=== PATIENT | female | born 1970 | race Caucasian/White ===

== ENCOUNTER 2022-08-03 21:13 | Emergency (ER) | payer MEDICAID ==
[~2022-08-03] VITALS: Ht 157.5 cm; Wt 81.6 kg
[2022-08-03 21:15] VITALS: BP 166/100
--- NOTE | 2022-08-03 21:26 | NUR ---
TO BR FOR UA FOLLOWING TRIAGE, THEN TO LOBBY
[2022-08-03 22:23] LABS: APPEARANCE,URINE CLEAR (CLEAR); BILIRUBIN,URINE NEGATIVE (NEGATIVE); BLOOD, URINE NEGATIVE (NEGATIVE); COLOR,URINE YELLOW (YELLOW); LEUKOCYTE ESTERASE ,URINE 1+ (NEGATIVE); NITRITE, URINE NEGATIVE (NEGATIVE); UGLUCOSE NEGATIVE (NEGATIVE)
[2022-08-03 22:29] LABS: RBC,URINE 0-5 /HPF (0-5); WBC,URINE 0-5 /HPF (0-5)
--- NOTE | 2022-08-03 22:54 | NUR ---
20G IV ESTABLISHED TO LT AC. BLOOD DRAWN VIA IV START.
[2022-08-03 22:58] LABS: BASOPHILS % (AUTO) 0.5 % (0.0-2.0); EOSINOPHILS # (AUTO) 0.1 K/uL (0-0.4); EOSINOPHILS % (AUTO) 1.3 % (0.0-4.0); HEMATOCRIT 39.1 % (36-48); HEMOGLOBIN 13.4 g/dL (12.0-16.0); LYMPHOCYTES # (AUTO) 2.5 K/uL (2.5-16.5); LYMPHOCYTES % (AUTO) 31.7 % (20.5-51.1); MEAN CORPUSCULAR HEMOGLOBIN 30 pg (27-31); MEAN CORPUSCULAR HGB CONC 34 g/dL (33-37); MEAN CORPUSCULAR VOLUME 87.1 fL (80-94); MONOCYTES # (AUTO) 0.4 K/uL (0.8-1.0); MONOCYTES % (AUTO) 5.3 % (1.7-9.3); NEUTROPHILS # (AUTO) 4.8 K/uL (1.8-7.7); NEUTROPHILS % (AUTO) 61.2 % (42.2-75.2); PLATELET COUNT (AUTO) 272 K/uL (140-450); RED BLOOD CELL COUNT(AUTO) 4.49 MIL/uL (4.20-5.40); RED CELL DISTRIBUTION WIDTH 12.8 % (11.6-13.7); WHITE BLOOD COUNT (AUTO) 7.9 K/uL (4.8-10.8)
[2022-08-03 23:27] LABS: ALBUMIN 4.3 g/dL (3.4-5.0); ANION GAP 13.7 (8-16); CREATININE 0.7 mg/dL (0.6-1.3); POTASSIUM 3.7 mmol/L (3.5-5.1); TOTAL BILIRUBIN 0.3 mg/dL (0.0-1.0)
[2022-08-04] MEDS ORDERED: ONDANSETRON 4 MG/2 ML VIAL IVP ONE (00:05)
[2022-08-04] MEDS ORDERED: KETOROLAC 15 MG/ML VIAL IVP ONE (00:05)
--- NOTE | 2022-08-04 00:07 | NUR ---
PT TO CT VIA W/C
--- NOTE | 2022-08-04 00:30 | NUR ---
PT TO BED #12
[2022-08-04] MEDS ORDERED: MORPHINE SULFATE 4 MG/ML SYR IVP ONE (01:00)
[2022-08-04] MEDS ORDERED: NACL 0.9% 1,000 ML IV ONE (01:00)
[2022-08-04] MEDS ORDERED: BEN10 PO (02:00)
[2022-08-04] MEDS ORDERED: CEPH-588 PO (02:00)
--- NOTE | 2022-08-04 02:36 | NUR ---
Patient discharged with v/s stable. Written and verbal after care instructions given and explained. Patient alert, oriented and verbalized understanding of instructions. Ambulatory with steady gait. All questions addressed prior to discharge. ID band removed. Patient advised to follow up with PMD. Rx of keflex and bentyl given. Patient educated on indication of medication including possible reaction and side effects. Opportunity to ask questions provided and answered.
[2022-08-05] MEDS ORDERED: ACET-5629 PO (17:03)
== END 2022-08-04 02:36 | disposition home or self-care (01) ==
LOC: MED 21:13
DX: N39.0 Urinary tract infection, site not specified (principal)
CPT/HCPCS: 36415; 74177; 80053; 81001; 81025; 83690; 85025; 87086; 96361; 96374; 96375; 99285; J1885; J2270; J2405; Q9967; J7030

== ENCOUNTER 2022-08-05 11:10 | Emergency (ER) | payer MEDICAID ==
[~2022-08-05] VITALS: Ht 157.5 cm; Wt 75.3 kg
[~2022-08-05 11:10] MED LIST: BEN10 PO; CEPH-588 PO
[2022-08-05 11:22] VITALS: BP 140/106
[2022-08-05] MEDS ORDERED: MORPHINE SULFATE 4 MG/ML SYR IM ONE (13:55)
[2022-08-05] MEDS ORDERED: MORPHINE SULFATE 4 MG/ML SYR ONE (13:58)
--- NOTE | 2022-08-05 14:07 | NUR ---
PT TAKEN TO XRAY VIA WHEELCHAIR
--- NOTE | 2022-08-05 14:24 | NUR ---
PT AMB TO BED 10
--- NOTE | 2022-08-05 14:25 | NUR ---
52YO FEMALE PT C/O BURNING 9/10 ABDOMINAL PAIN AND N/V-BLOOD X3DAYS. PT W/ HX OF HERNIA MESH REPAIR AND STATES S/S. REPORTS CONSTIPATION X2DAYS. ABDOMEN NON TENDER OR DISTENED, HYPOACTIVE X4. PT RECENTLY SEEN IN ER FOR S/S AND D/C W PAIN MANAGEMENT. DENIES RELIEF SINCE AND UNABLE TO SEE PCP SOON. DENIES CHEST PAIN, SOB, FEVER OR CHILLS. PT AAOX4, HOB POSITIONED PER COMFORT, HX: ULCERS NKA
[2022-08-05 14:51] VITALS: BP 127/94
[2022-08-05 14:56] LABS: BASOPHILS % (AUTO) 0.2 % (0.0-2.0); EOSINOPHILS % (AUTO) 0.4 % (0.0-4.0); HEMATOCRIT 42.6 % (36-48); HEMOGLOBIN 14.7 g/dL (12.0-16.0); LYMPHOCYTES # (AUTO) 1.9 K/uL (2.5-16.5); LYMPHOCYTES % (AUTO) 21.9 % (20.5-51.1); MEAN CORPUSCULAR HEMOGLOBIN 30 pg (27-31); MEAN CORPUSCULAR HGB CONC 35 g/dL (33-37); MEAN CORPUSCULAR VOLUME 87.7 fL (80-94); MONOCYTES # (AUTO) 0.4 K/uL (0.8-1.0); MONOCYTES % (AUTO) 4.2 % (1.7-9.3); NEUTROPHILS # (AUTO) 6.5 K/uL (1.8-7.7); NEUTROPHILS % (AUTO) 73.3 % (42.2-75.2); PLATELET COUNT (AUTO) 315 K/uL (140-450); RED BLOOD CELL COUNT(AUTO) 4.86 MIL/uL (4.20-5.40); WHITE BLOOD COUNT (AUTO) 8.9 K/uL (4.8-10.8)
[2022-08-05 14:58] LABS: APPEARANCE,URINE CLEAR (CLEAR); BILIRUBIN,URINE NEGATIVE (NEGATIVE); BLOOD, URINE NEGATIVE (NEGATIVE); COLOR,URINE YELLOW (YELLOW); LEUKOCYTE ESTERASE ,URINE NEGATIVE (NEGATIVE); NITRITE, URINE NEGATIVE (NEGATIVE); PH,URINE 6.5 (5.0-9.0); UGLUCOSE NEGATIVE (NEGATIVE)
[2022-08-05 15:10] LABS: ANION GAP 11.4 (8-16); CARBON DIOXIDE 28.1 mmol/L (21-32); CHLORIDE 97 mmol/L (98-107); GFR ARICAN-AMERICAN 75 mL/min (>90); GLUCOSE 96 mg/dL (74-106); POTASSIUM 3.5 mmol/L (3.5-5.1); SODIUM SERUM 133 mmol/L (136-145); UREA NITROGEN, BLOOD 10 mg/dL (7-18)
[2022-08-05 15:19] LABS: ALBUMIN 4.1 g/dL (3.4-5.0); ASPARTATE AMINOTRANSFERASE 24 U/L (15-37); LIPASE 128 U/L (73-393); TOTAL BILIRUBIN 0.7 mg/dL (0.0-1.0)
--- NOTE | 2022-08-05 15:20 | NUR ---
PT AMB TO LOBBY
[2022-08-05] MEDS ORDERED: ACET-5629 PO (17:03)
--- NOTE | 2022-08-05 17:54 | NUR ---
Patient discharged with v/s stable. Written and verbal after care instructions ABOUT ABD PAIN given and explained. Patient alert, oriented and verbalized understanding of instructions. Ambulatory with steady gait. All questions addressed prior to discharge. ID band removed. Patient advised to follow up with PMD. Rx of PERCOCET 5-325 given. Patient educated on indication of medication including possible reaction and side effects. Opportunity to ask questions provided and answered.
== END 2022-08-05 17:54 | disposition home or self-care (01) ==
LOC: MED 11:10
DX: R10.33 Periumbilical pain (principal); Z90.49 Acquired absence of other specified parts of digestive tract
CPT/HCPCS: 36415; 71045; 80053; 81003; 81025; 83690; 84484; 84703; 85025; 93005; 96372; 99285; J2270